=== PATIENT | male | born 1980 | race African-American/Black ===

== ENCOUNTER 2018-04-23 17:49 | Emergency (ER) | payer MEDICAID, OTHER ==
[2018-04-23] MEDS ORDERED: DIPH/PERTUSS(ACELL)/TETANUS VAC/PF 0.5 ML SYR (>=10YO) IM ONE (19:39)
--- NOTE | 2018-04-23 19:40 | ER Document Report ---
HPI - HPI Time Seen by Provider: 04/23/18 19:39 Pain Level: 1 Notes: Patient is a 37-year-old male who presents with chief complaint of superficial laceration to his right index finger. 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 He states his tetanus was last updated approximately 12 years ago. No active bleeding noted at this time. Past Medical History - General Information source: Patient - Social History Smoking Status: Never Smoker Frequency of alcohol use: None Drug Abuse: None Family History: Reviewed & Not Pertinent - Medical History Medical History: Negative - Past Medical History Cardiac Medical History: Denies: Hx Coronary Artery Disease, Hx Heart Attack, Hx Hypertension Pulmonary Medical History: Denies: Hx Asthma, Hx Bronchitis, Hx COPD, Hx Pneumonia Neurological Medical History: Denies: Hx Cerebrovascular Accident, Hx Seizures Musculoskeletal Medical History: Denies Hx Arthritis Psychiatric Medical History: Reports: Hx Bipolar Disorder, Hx Depression - Immunizations Hx Diphtheria, Pertussis, Tetanus Vaccination: No Vertical Provider Document - CONSTITUTIONAL Notes: PHYSICAL EXAMINATION: GENERAL: Well-appearing, well-nourished and in no acute distress. HEAD: Atraumatic, normocephalic. EYES: Pupils equal round extraocular movements intact, conjunctiva are normal. ENT: Nares patent NECK: Normal range of motion LUNGS: No respiratory distress Musculoskeletal: Normal range of motion NEUROLOGICAL: Normal speech, normal gait. PSYCH: Normal mood, normal affect. SKIN: Warm, Dry, normal turgor, no rashes or lesions noted. Superficial laceration noted to tip of right index finger, measures approximately 1 cm, approximates well, no active bleeding noted. Cap refill less than 3 seconds, normal motor and sensation distal to injury. - INFECTION CONTROL TRAVEL OUTSIDE OF THE [place] IN LAST 30 DAYS: No Course - Re-evaluation Re-evalutation: 04/23/18 19:47 Superficial laceration cleaned copiously with surgical scrub. This was then closed with Dermabond. Tdap was updated. Patient given ED return precautions. - Vital Signs Vital signs: Temp Pulse Resp BP Pulse Ox 98 F 70 16 121/70 98 04/23/18 17:57 04/23/18 17:57 04/23/18 17:57 04/23/18 17:57 04/23/18 17:57 Discharge - Discharge Clinical Impression: Laceration, Need for Tdap vaccination Condition: Stable Disposition: HOME, SELF-CARE Additional Instructions: Your laceration was closed today with Dermabond. This will fall off on its own. Please do not pick at the area. Do not apply any ointments or anything else to the area. You may wash her hands as per your usual. I would wear gloves while you are at work. Your tetanus shot was updated today. This lasts for 10 years unless you have a new injury that it would need to be updated in 5 years.
[2018-04-23 21:46] VITALS: BP 112/75
== END 2018-04-23 20:00 | disposition home or self-care (01) ==
LOC: ER 17:49
DX: Z23 Encounter for immunization (principal); S61.210A Laceration without foreign body of right index finger without damage to nail, initial encounter; W45.8XXA Other foreign body or object entering through skin, initial encounter; Y99.0 Civilian activity done for income or pay
CPT/HCPCS: 90471; 90715; 99282